=== PATIENT | female | born 2000 | race African-American/Black ===

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

== ENCOUNTER 2019-11-17 09:01 | Emergency (ER) | payer OTHER, MEDICAID ==
[~2019-11-17] VITALS: Ht 160 cm; Wt 54.5 kg
[~2019-11-17 09:01] MED LIST changes: +IBU600 MG PO; +PROBIOTIC FORMU1 CAP PO; +ZYRTEC5 MG PO
[2019-11-17 09:54] VITALS: BP 116/79; PULSE 95; TEMP 98.1
[2019-11-17] MEDS ORDERED: ZOLOFT 50MG50 MG PO (09:56)
== END 2019-11-17 10:03 | disposition home or self-care (01) ==
LOC: COL.ER 09:01
DX: J30.9 Allergic rhinitis, unspecified (principal); Z88.8 Allergy status to other drugs, medicaments and biological substances

== ENCOUNTER 2020-04-12 13:12 | Emergency (ER) | payer OTHER, MEDICAID ==
[~2020-04-12] VITALS: Ht 160 cm; Wt 54.5 kg
[~2020-04-12 13:12] MED LIST changes: +ZOLOFT 50MG50 MG PO
[2020-04-12 13:19] VITALS: TEMP 98.9
[2020-04-12] MEDS ORDERED: KYLEENA1 EACH IY (13:56)
[2020-04-12 15:14] LABS: COLLECTION METHOD CLEAN CATCH
[2020-04-12 15:21] LABS: PH 9 (5-8); SQUAMOUS EPITHELIAL 0-2 /hpf; URINE APPEARANCE Clear; URINE BACTERIA None Seen /hpf; URINE BILIRUBIN Negative (NEGATIVE); URINE BLOOD Negative (NEGATIVE); URINE COLOR Straw; URINE GLUCOSE Negative (NEGATIVE); URINE KETONE Negative (NEGATIVE); URINE LEUKOCYTE ESTERASE Negative (NEGATIVE); URINE NITRATE Negative (NEGATIVE); URINE PROTEIN(semi-quant) Negative (NEGATIVE); URINE RBC 0-2 /hpf; URINE UROBILINOGEN Negative (NEGATIVE)
[2020-04-12 16:20] VITALS: BP 100/71; PULSE 72
== END 2020-04-12 16:20 | disposition home or self-care (01) ==
LOC: COL.ER 13:12
PROVIDERS: Physician Assistant
DX: R10.32 Left lower quadrant pain (principal)

== ENCOUNTER 2021-08-22 17:33 | Emergency (ER) | payer OTHER, MEDICAID ==
[~2021-08-22] VITALS: Ht 157.5 cm; Wt 50.0 kg
[~2021-08-22 17:33] MED LIST changes: +KYLEENA1 EACH IY; +ZYRTEC 10MG10 MG PO; -ZYRTEC5 MG PO
[2021-08-22] MEDS ORDERED: XANAX 0.5MG0.5 MG PO (17:51)
[2021-08-22 17:52] VITALS: TEMP 99.4
[2021-08-22] MEDS ORDERED: IPRATROPIUM BROM3 M1 IH (18:05)
[2021-08-22] MEDS ORDERED: ZITHROMAX Z PA250 MG PO (18:25)
[2021-08-22] MEDS ORDERED: PREDNISONE20 MG PO (18:25)
[2021-08-22 18:55] VITALS: BP 106/68; PULSE 117
== END 2021-08-22 18:55 | disposition home or self-care (01) ==
LOC: COL.ER 17:33
DX: J20.9 Acute bronchitis, unspecified (principal); J45.909 Unspecified asthma, uncomplicated; Z20.822 Contact with and (suspected) exposure to COVID-19; Z87.891 Personal history of nicotine dependence